=== PATIENT | male | born 1960 | race Caucasian/White ===

== ENCOUNTER 2018-05-13 06:09 | Inpatient (IN) | payer BC ==
[2018-05-02 11:12] LABS: ABSOLUTE EOSINOPHILS 0.2 thou/uL (0.0-0.7); ABSOLUTE LYMPHOCYTES 1.1 thou/uL (0.8-5.3); ABSOLUTE MONOCYTES 0.7 thou/uL (0.0-1.2); ABSOLUTE NEUTROPHILS 5.5 thou/uL (1.6-8.1); BASOPHILS 0.6 %; EOSINOPHILS 2.5 %; HEMATOCRIT 44.7 % (42.0-52.0); HEMOGLOBIN 15.2 gm/dL (14.0-18.0); LYMPHOCYTES 14.8 %; MCH 31.3 pg (26.0-34.0); MCHC 34.1 g/dL (28.0-37.0); MCV 91.7 fL (80.0-100.0); MONOCYTES 9.8 %; MPV 7.4 fl. (7.2-11.1); NUCLEATED RBCS 0 /100WBC; PLATELET COUNT* 352 thou/uL (150-400); POLYS 72.3 %; RBC 4.87 mil/uL (4.50-6.00); RDW-CV 13.1 % (10.5-14.5); WBC 7.6 thou/uL (4.0-11.0)
[2018-05-02 11:20] LABS: APTT 27.9 Seconds (25.0-31.3); PROTIME 10.7 Seconds (9.20-11.50)
[2018-05-02 11:27] LABS: ALBUMIN 3.6 g/dL (3.4-5.0); CALCIUM 8.5 mg/dL (8.5-10.1); POTASSIUM 3.8 mmol/L (3.5-5.1); TOTAL BILIRUBIN 0.7 mg/dL (<0.1-1.0); TOTAL PROTEIN 7.6 g/dL (6.4-8.2)
[2018-05-02 12:14] LABS: ESR (SEDRATE) 20 mm/hr (0-20)
--- NOTE | 2018-05-02 17:50 | EKG ---
[place] [address] ELECTROCARDIOGRAM REPORT Name: GABRIELA DUQUE Room: PRE IN [facility].#: [id number] Admission: Attend Phys: Raeann Amato Discharge: Date of : 58 Report #: [id number] THIS REPORT FOR: //name// [facility] Test Date: 2018-05-02 Test Time: 11:14:56 Pat Name: GABRIELA DUQUE Department: Room: Gender: [employer] Promotion Coordinator: : 1960 Requested By: Carrington Foster Order Number: [id number] Reading MD: Alvin Pina Measurements Intervals Chambers Rate: 73 P: 40 TX: 164 QRS: -9 QRSD: 105 T: 11 QT: 378 QTc: 417 Interpretive Statements Sinus rhythm Inferior infarct, old Baseline wander in lead(s) V1,V2,V3,V4 No previous ECG available for comparison Electronically Signed On 05-02-2018 17:49:49 NETWORK ARCHITECT MANAGER by Alivn Pina [email or web address] <ELECTRONICALLY SIGNED> By: Alvin Pina MD, [facility] 05/02/18 1749 1114 1114 Alvin Pina MD, FACC /EPI
[2018-05-02 22:07] LABS: GLYCOHEMOGLOBIN (HGB A1C) 5.6 % (4.8-5.6)
[~2018-05-13] VITALS: Ht 180.3 cm; Wt 111.1 kg
--- NOTE | ~2018-05-13 | OP ---
[facility] [address] [place] [address] OPERATIVE REPORT Name: GABRIELA DUQUE Room: [address] M.R.#: [id number] Admission: 05/13/18 Attend Phys: Raeann Amato Discharge: Date of : 58 Report #: [id number] THIS REPORT FOR: //name// CC: Agapito Alonso DATE OF SERVICE: 05/13/2018 PREOPERATIVE DIAGNOSIS: Advanced degenerative joint disease, bilateral hips, right worse than left. POSTOPERATIVE DIAGNOSIS: Advanced degenerative joint disease, bilateral hips, right worse than left. PROCEDURE: Right total hip arthroplasty with anterior surgical incision. SURGEON: Carrington Foster DO MARINE EQUIPMENT TEST ENGINEER: Jarod Palma DO ANESTHESIA: General endotracheal. COMPLICATIONS: None. ANTIBIOTICS: 2 grams Ancef IVPB 30 minutes prior to incision. ESTIMATED BLOOD LOSS: 500 mL. IMPLANTS: A Biomet G7 total hip system with a 12 x 109 mm Taperloc Microplasty lateralized reduced distal stem, a +3 taper adapter, a 36 mm high wall liner, E1 antioxidant, a 60 mm G7 finned acetabular shell, and two screws 6.5 x 25 and 6.5 x 30 mm. Two grams of vancomycin powder topically, 1 gram of TXA topically. INDICATIONS FOR SURGERY: The patient is a 57-year-old male who is seen today for elective surgical intervention of his right hip. He has failed conservative treatment to date including exercise therapy, weight loss, anti-inflammatories, tramadol, pain management, stretching. He has significantly impacted quality of life with severe pain. Sleeping is difficult. Range of motion is extremely limited at this time and he is now having an antalgic gait. He has also tried injection under fluoro without any significant length of relief. Risks and complications were discussed in detail with this patient including but not limited to neurovascular damage, infection, fracture, need for further surgery, failure of the prosthesis, recall of the prosthesis, [place] [address] OPERATIVE REPORT Name: BRUCEGABRIELA CARPIO Room: [address] [place] ..#: [id number] Admission: 05/13/18 Attend Phys: Raeann Amato Discharge: Date of : 58 Report #: [id number] allergy developed to prosthesis, deep vein thrombosis which he has a history of, pulmonary emboli, myocardial infarction, rhabdomyolysis, blood loss, blood transfusion reaction, leg length discrepancy, chronic pain, chronic limping, Trendelenburg gait pattern, even . Signed informed consent had been attached to chart, may refer to and his hip was marked preoperatively for timeout technique. DESCRIPTION OF PROCEDURE: The patient was taken to the operative suite and placed on a [place] table in supine position. Following general endotracheal anesthetic, the right hip was prepped and draped in the usual sterile fashion. A timeout technique was utilized to verify appropriate surgical site, procedures, concerns, allergies. An incision approximately 6 cm was made approximately 1.5 cm, 2 cm posterior to the ASIS and 1 cm distal. Incision was carried through skin and subcutaneous tissue down to the tensor fascia. The tensor fascia was then incised in line with skin incision a centimeter behind or posterior to the interval between the sartorius and the tensor fascia danny. This plane is developed with finger dissection down to the anterior capsule. The circumflex vessels were treated with the Aquamantys and resected. The anterior capsule was treated with the Aquamantys and then resected. With the use of the proper retractors, the femoral neck and femoral head was visualized. There is use of a saw to make a saw cut at the base of the femoral neck, a fingerbreadth above the lesser trochanter, second at the base of the femoral head. The napkin ring portion of the neck was removed with a bone tenaculum, followed by removal of the femoral head with bone tenaculum. The acetabulum was then prepared by removing the remaining labral structures with electrocautery and also a 10 blade knife. The acetabulum was then sequentially reamed up to a size 59 mm reamer. Final reaming was done under direct visualization, external guide and C-arm fluoroscopy for appropriate alignment and depth. The final cup was obtained, prepared on the back table, sprinkled with vancomycin powder. Copious irrigation carried out throughout the incision. The cup was impacted firmly into place once again using external guide, direct visualization and C-arm fluoroscopy. Once impacted firmly, two screw holes were drilled and the appropriate screws were placed. The apical screw hole was filled with the screw cover and b2b outside sales representative x-rays obtained. The final liner was impacted firmly into place with a high wall in this anterior superior direction. Next, attention was turned to the proximal femur. After appropriate retractors were placed and positioning of the leg, the proximal femur was prepared with a box osteotome followed by the rat-tail broach and sequentially broached up to a size 12 mm broach. Trial reduction was performed. Leg length was checked numerous times with trans-ischial leg lengths. His ischial tuberosities are unequal size. Therefore, this was difficult to ascertain appropriate leg length, but it appeared to be as close as it could possibly be and still maintain stability. It was necessary to utilize the +3 mm neck as the -3 mm neck allowed for some instability on external rotation and extension of the hip. The +3 mm neck gave excellent stability throughout the entire arc of motion with no tendency towards dislocation. Final components were obtained, placed on the back table. Trial [address] [address] OPERATIVE REPORT Name: GABRIELA DUQUE Room: [address] [place] M.R.#: [id number] Admission: 05/13/18 Attend Phys: Raeann Amato Discharge: Date of : 58 Report #: [id number] components were removed. Copious irrigation carried out throughout the incision. The remaining vancomycin powder was sprinkled throughout the incision as well. The pain cocktail was utilized and injected throughout the soft tissue and skin of the incision site and deep tissues. The final stem was impacted firmly into place. The final +3 mm neck and ceramic head were impacted firmly onto a clean, dry Ko taper neck. Final reduction was performed. Track Layer x-rays were obtained. Excellent alignment was noted. Excellent leg length was noted. Good stability was noted throughout. The incision was then closed with a #1 running Quill suture to the tensor fascia. Skin was reapproximated with 2-0 Monocryl subcutaneous sutures followed by running 3-0 Stratafix subcuticular suture reinforced with Dermabond glue. A Mepilex dressing was applied. The patient tolerated the procedure well and was taken to recovery in stable condition. No complications encountered. By: 1740 [id number] Foster DO /contreras
[~2018-05-13 06:09] MED LIST: ELIQUIS5 MG PO; LEXAPRO 10 MG T10 M1 PO; LOPRESSOR50 PO; LOSARTAN-HCTZ1 EAC1 PO; NORVASC5 MG PO; TRAMADOL 50 MG50 MG PO
[2018-05-13 07:15] VITALS: BP 135/81
[2018-05-13 11:56] VITALS: BP 151/89
[2018-05-13 16:35] VITALS: BP 144/87
[2018-05-13 20:15] VITALS: BP 140/74
[2018-05-14] VITALS: BP 147/83
[2018-05-14 04:00] VITALS: BP 138/80; BP 138/81
[2018-05-14 04:30] LABS: HEMATOCRIT 34.8 % (42.0-52.0); HEMOGLOBIN 12.2 gm/dL (14.0-18.0)
[2018-05-14 08:40] VITALS: BP 133/74
[2018-05-14 16:00] VITALS: BP 130/77
[2018-05-14 19:45] VITALS: BP 132/74
[2018-05-15 03:53] VITALS: BP 124/53
[2018-05-15 04:47] LABS: HEMATOCRIT 33.1 % (42.0-52.0); HEMOGLOBIN 11.4 gm/dL (14.0-18.0)
[2018-05-15 12:20] VITALS: BP 129/83
[2018-05-15 12:40] VITALS: BP 129/83
== END 2018-05-15 15:12 | disposition home or self-care (01) | DRG 470 ==
LOC: M.SUR 06:09 → EDSTATUS 09:32 → M.SUR 09:40 → M.PRE 09:54 → M.TBA 10:31 → M.ORTHSURG 10:31 → M.SUR 10:56 → M.ORTHSURG 11:09 → M.SUR 11:10 → M.PRE 12:19 → M.ORTHSURG 05-15 15:12
PROVIDERS: Orthopaedic Surgery; ADMIT Internal Medicine
PROC: 0SR903Z Replacement of Right Hip Joint with Ceramic Synthetic Substitute, Open Approach (ICD-10-PCS; principal; 2018-05-13)
DX: M16.11 Unilateral primary osteoarthritis, right hip (principal); D62 Acute posthemorrhagic anemia; I48.91 Unspecified atrial fibrillation; I10 Essential (primary) hypertension; K21.9 Gastro-esophageal reflux disease without esophagitis; F32.9 Major depressive disorder, single episode, unspecified; M54.9 Dorsalgia, unspecified; Z79.01 Long term (current) use of anticoagulants; Z86.711 Personal history of pulmonary embolism; Z88.0 Allergy status to penicillin; Z79.899 Other long term (current) drug therapy